=== PATIENT | male | born 1950 | race Caucasian/White ===

== ENCOUNTER 2018-02-07 06:44 | Emergency (ER) | payer MEDICARE, MEDICAID ==
[~2018-02-07] VITALS: Ht 165.1 cm; Wt 72.7 kg
[~2018-02-07 06:44] MED LIST: DSS100 PO; INSNOV SQ; LISI-662 PO; METF-960 PO; PERCT PO
[2018-02-07 07:14] LABS: GLUCOSE,POINT OF CARE 138 MG/DL (70-110)
[2018-02-07] MEDS ORDERED: IBUPROFEN 600 MG TABLET PO ONE (09:30)
[2018-02-07 09:55] VITALS: BP 142/79
== END 2018-02-07 11:11 | disposition home or self-care (01) ==
LOC: EMS 06:45
DX: S13.4XXA Sprain of ligaments of cervical spine, initial encounter (principal); I10 Essential (primary) hypertension; E11.9 Type 2 diabetes mellitus without complications; Z79.84 Long term (current) use of oral hypoglycemic drugs; V43.52XA Car driver injured in collision with other type car in traffic accident, initial encounter; Y93.89 Activity, other specified; Y92.89 Other specified places as the place of occurrence of the external cause; Y99.8 Other external cause status
CPT/HCPCS: 72040

== ENCOUNTER 2022-01-15 07:03 | Emergency (ER) | payer MEDICARE, MEDICAID ==
[~2022-01-15] VITALS: Ht 165.1 cm; Wt 81.8 kg
[~2022-01-15 07:03] MED LIST changes: +ATOR20TA86 PO; -DSS100 PO; +FINA-27 PO; -INSNOV SQ; -LISI-662 PO; +LISI-894 PO; +METF-1211 PO; -METF-960 PO; -PERCT PO; +TERA2CAP10 PO
[2022-01-15 07:46] LABS: BASOPHILS % (AUTO) 0.2 % (0.0-2.0); EOSINOPHILS % (AUTO) 0.8 % (1.0-6.0); HEMATOCRIT 35.9 % (41-53); HEMOGLOBIN 11.7 g/dL (13.5-17.5); LYMPHOCYTES # (AUTO) 0.7 K/uL (1.0-4.8); LYMPHOCYTES % (AUTO) 12.7 % (22.0-44.0); MEAN CORPUSCULAR HEMOGLOBIN 30.4 pg (26.0-34.0); MEAN CORPUSCULAR HGB CONC 32.7 G/dL (31.0-37.0); MEAN CORPUSCULAR VOLUME 93 fL (80-100); MONOCYTES # (AUTO) 0.8 K/uL (0.1-1.0); MONOCYTES % (AUTO) 15.7 % (2.0-9.0); NEUTROPHILS # (AUTO) 3.7 K/uL (1.8-7.7); NEUTROPHILS % (AUTO) 70.6 % (40.0-70.0); PLATELET COUNT (AUTO) 150 K/uL (150-450); RED BLOOD CELL COUNT(AUTO) 3.86 MIL/uL (4.50-5.90); RED CELL DISTRIBUTION WIDTH 13.5 % (11.5-14.5)
[2022-01-15 07:58] LABS: ANION GAP 8 mmol/L (8-16); CALCIUM, TOTAL 8.5 mg/dL (8.8-10.5); CARBON DIOXIDE 26 mmol/L (22-29); CHLORIDE 104 mmol/L (98-107); CREATININE 1.19 mg/dL (0.60-1.30); GLUCOSE,RANDOM 131 mg/dL (70-110); POTASSIUM 3.7 mmol/L (3.5-5.1); SODIUM SERUM 138 mmol/L (136-145); UREA NITROGEN, BLOOD 12 mg/dL (7-18)
[2022-01-15 07:59] LABS: GLOMERULAR FILTR. RATE CALC > 60 mL/min (>60)
[2022-01-15] MEDS ORDERED: ACETAMINOPHEN 500 MG TABLET PO ONE (08:00)
[2022-01-15] MEDS ORDERED: ASPIRIN 81 MG CHEWABLE TABLET PO ONE (08:00)
[2022-01-15 08:02] LABS: COVID AG,FIA SOURCE NASAL SWAB
[2022-01-15 08:05] LABS: ALANINE AMINOTRANSFERASE 35 U/L (12-78); ALBUMIN 3.6 g/dL (3.4-5.0); ALKALINE PHOSPHATASE 83 U/L (46-116); ASPARTATE AMINOTRANSFERASE 27 U/L (15-37); BILIRUBIN,TOTAL 0.3 mg/dL (0.1-1.0); CREATINE KINASE, TOTAL ONLY 74 U/L (39-308); TOTAL PROTEIN, SERUM 7.3 g/dL (6.4-8.2)
[2022-01-15 09:06] LABS: INFLUENZA TYPE A NEGATIVE FOR TYPE A (NEGATIVE); INFLUENZA TYPE B NEGATIVE FOR TYPE B (NEGATIVE)
[2022-01-15 09:34] VITALS: BP 136/81
[2022-01-15] MEDS ORDERED: NIRM1TAB PO (09:35)
== END 2022-01-15 09:57 | disposition home or self-care (01) ==
LOC: EMS 07:03
DX: U07.1 COVID-19 (principal); E11.9 Type 2 diabetes mellitus without complications; I10 Essential (primary) hypertension
CPT/HCPCS: 71045; 80053; 82550; 83880; 84484; 85025; 87804; 93005; 99285; 36415-L1; 36415-TC

== ENCOUNTER 2024-11-21 13:19 | Emergency (ER) | payer MEDICARE, MEDICAID ==
[~2024-11-21] VITALS: Ht 160 cm; Wt 71.8 kg
[~2024-11-21 13:19] MED LIST changes: +ATOR20TA PO; -ATOR20TA86 PO; +NIRM1TAB4 PO
[2024-11-21 13:32] VITALS: TEMP 97.9
[2024-11-21 14:01] LABS: GLUCOMETER DEV NAME(LOC) ERT.7; GLUCOSE,POINT OF CARE 248 MG/DL (70-110)
[2024-11-21] MEDS: KETOROLAC TROMETHAMINE 30 MG/ML VIAL IM ONE (15:22)
[2024-11-21] MEDS: LIDOCAINE 5% TRANSDERMAL PATCH TD ONE (15:23)
[2024-11-21] MEDS ORDERED: METH-659 PO (16:02)
[2024-11-21] MEDS ORDERED: IBUP-1492 PO (16:02)
[2024-11-21 16:20] VITALS: BP 162/92; PULSE 78; RESP 16; O2SAT 99
== END 2024-11-21 16:27 | disposition home or self-care (01) ==
LOC: EMS 13:26
DX: R07.1 Chest pain on breathing (principal); E11.9 Type 2 diabetes mellitus without complications; I10 Essential (primary) hypertension; Z79.84 Long term (current) use of oral hypoglycemic drugs; Z79.899 Other long term (current) drug therapy
CPT/HCPCS: 99283; 71046; 82962; 96372; J1885